=== PATIENT | male | born 1960 | race Caucasian/White ===

== ENCOUNTER 2025-05-27 02:15 | Day surgery (SDC) | payer MEDICARE, SELFPAY ==
[2025-05-17 12:52] VITALS: BMI 27.6
--- OUTSIDE RECORDS SUMMARY | 2025-05-27 02:18 | XMS_ITS | Data Portability ---
Author Organization [facility] Address [address] [place] [address] Care Team Providers Care Bull Fiddle Player Name Role Phone LISA DAS Tufting Creeler Assessment Encounter Date Assessment Date Assessment LastModified by Organization Details LastModified Time 12/13/2023 12/13/2023 Pt's case was discussed w/resident. Documentation was reviewed, and I agree w/resident's note. Dr. Mccullough [email or web address] Not available 12/14/2023 15:04:11 07/21/2024 07/21/2024 Harshad Ly is a 64y/o M with PMH of essential HTN, prediabetes (last A1c from 09/2023 of 6.1%), atherosclerosis, history of VA, OA, celiac disease, and chronic tremor who presents today for follow up appointment. [email or web address] Not available 07/21/2024 12:45:46 11/25/2024 11/25/2024 Needs labs faxed to Dr. Das office Not available 11/25/2024 10:15:47 03/08/2025 03/08/2025 Pt's case was discussed w/resident. Documentation was reviewed, and I agree w/resident's note. Dr. Mccullough [email or web address] Not available 03/11/2025 06:47:10 Plan of Treatment Reminders Order Date Submit Date Provider Last Modified By Organization Details Last Modified Time Details Appointments None recorded. Lab lipid panel, serum 2024 025 [place] [facility], [address], [place], [address], 5 06:51:14 HbA1c (hemoglobin A1c), blood [address] [facility], [address], [place], [address], 5 06:51:16 CBC w/ auto diff [address] [facility], [address], [address], [place], [address], 5 06:51:17 CMP, serum or plasma [address] [facility], [address], [address], [place], [address], 5 06:51:15 Referral neurologist referral 2024 dee Ingram MD, [address] [place] [address], [address], 5 10:13:21 Procedures None recorded. Surgeries None recorded. Imaging None recorded. Medication Orders metoprolol tartrate 25 mg tablet 2024 025 [facility], [address] [place] [address], [address], 5 17:08:18 losartan 100 mg tablet 2024 025 [facility] [address], [address] [place] [address], [address], 5 09:19:52 losartan 100 mg tablet 2024 025 [facility] [address], [address] [place] [address], [address], 5 14:36:26 losartan 50 mg tablet 2023 025 [facility] [address], [address] [place] [address], [address], 09:14:30 atorvastati n 40 mg tablet 2023 024 [email or web address] [facility] [address], [address] [place] [address], [address], 15:02:51 Patient TargetsNo targets recorded. Patient Instructions Encounter Date Encounter Id Patient Instructions Last Modified By Organization Details Last Modified Time 12/13/2023 [id number] A healthy lifestyle: care instructions Not available 12/13/2023 14:24:54 07/21/2024 [id number] A healthy lifestyle: care instructions [email or web address] Not available 07/21/2024 14:36:18 learning about high blood pressure Not available 07/21/2024 14:36:18 I was present in the office and available during the visit. I discussed the patient s presentation, findings, assessment and plan with the resident during or immediately after the time of service. I agree with the resident s findings, assessment, and plan as documented in the note above. Gianluca Vital MD. [facility] [email or web address] Not available 07/21/2024 16:26:02 08/21/2024 [id number] A healthy lifestyle: care instructions [email or web address] Not available 08/21/2024 09:19:41 I was present in the clinic to discuss this patient at the time of the visit. I agree with the documented assessment and plan Lewis Farah MD [email or web address] Not available 08/21/2024 12:59:01 11/25/2024 [id number] A healthy lifestyle: care instructions Not available 11/25/2024 10:08:13 Attending Physician Attestation I did not personally see or examine the patient with the resident. I was physically present to provide indirect supervision through entire encounter. I have reviewed the documentation and agree with the history, physical findings, work-up, and medical decision making as recorded. Argelia Cornejo MD [email or web address] Not available 11/25/2024 10:15:22 03/08/2025 [id number] advance care planning: care instructions [email or web address] Not available 03/08/2025 17:11:20 preventing falls : care instructions [email or web address] Not available 03/08/2025 17:11:20 Quitting Tobacco : Care Instructions [email or web address] Not available 03/08/2025 17:11:20 Medicare Wellnes s Preventive Checklist Not available 03/08/2025 17:11:20 eating healthy foods: care instructions [email or web address] Not available 03/08/2025 17:11:20 AD8 Dementia Screening Interview [email or web address] Not available 03/08/2025 17:11:20 bradycardia: car e instructions Not available 03/08/2025 17:11:20 Reason for Referral Neurologist Referral for Chr onic tremor Referring Physician: Nacho Vyas, [employer]aker [employer]ing Wheel, Encounter Date: 11/25/2024 Results Created Date Observation Date Name Description Value Unit Range Abnormal Flag Note LastModifiedBy Organization Detail LastModifiedTime 11/26/1911/26/2024 LIPID PANEL cholesterol, total 126 mg/dL 100-19 9 Not Available [facility] ([facility]) [address] [place], [address], 11/26/2024 06:51:14 11/26/1911/26/2024 LIPID PANEL triglyceride s 96 mg/dL 0-149 Not Available [facility] ([facility]) [address] [place], [address], 11/26/2024 06:51:14 11/26/1911/26/2024 LIPID PANEL HDL cholesterol 41 mg/dL >39 Not Available [facility] ([facility]) [address] [place], [address], 11/26/2024 06:51:14 11/26/1911/26/2024 LIPID PANEL VLDL cholesterol rita 18 mg/dL 5-40 Not Available [facility] ([facility]) [address] [place], [address], 11/26/2024 06:51:14 11/26/19 25 11/26/2024 LIPID PANEL LDL chol calc ([facility]) 67 mg/dL 0-99 Not Available [facility] ([facility]) [address] [place], [address], 11/26/2024 06:51:14 11/26/19 25 11/26/2024 COMP. METAB OLIC PANEL (14) glucose 96 mg/dL 70-99 Not Available [facility] ([facility]) [address] [place], [address], 11/26/2024 06:51:15 11/26/19 25 11/26/2024 COMP. METAB OLIC PANEL (14) BUN 14 mg/dL 8-27 Not Available [facility] ([facility]) [address] [place], [address], 11/26/2024 06:51:15 11/26/19 25 11/26/2024 COMP. METAB OLIC PANEL (14) creatinine 0.88 mg/dL 0.76-1 .27 Not Available [facility] ([facility]) [address] [place], [address], 11/26/2024 06:51:15 11/26/19 25 11/26/2024 COMP. METAB OLIC PANEL (14) eGFR 95 mL/mi n/1.7 3 >59 Not Available [facility] ([facility]) [address] [place], [address], 11/26/2024 06:51:15 11/26/19 25 11/26/2024 COMP. METAB OLIC PANEL (14) BUN/creatini ne ratio 16 10-24 Not Available [facility] ([facility]) [address] [place], [address], 11/26/2024 06:51:15 11/26/19 25 11/26/2024 COMP. METAB OLIC PANEL (14) sodium 141 mmol/ L 134-14 4 Not Available [facility] ([facility]) [address] [facility] [place], [address], 11/26/2024 06:51:15 11/26/19 25 11/26/2024 COMP. METAB OLIC PANEL (14) potassium 4.8 mmol/ L 3.5-5. 2 Not Available [facility] ([facility]) [address] [facility] [place] [address], 11/26/2024 06:51:15 11/26/19 25 11/26/2024 COMP. METAB OLIC PANEL (14) chloride 106 mmol/ L 96-106 Not Available [facility] ([facility]) [address] [facility] [place], [address], 11/26/2024 06:51:15 11/26/19 25 11/26/2024 COMP. METAB OLIC PANEL (14) carbon dioxide, total 22 mmol/ L 20-29 Not Available [facility] ([facility]) [address] [facility] [place], [address], 11/26/2024 06:51:15 11/26/19 25 11/26/2024 COMP. METAB OLIC PANEL (14) calcium 9.1 mg/dL 8.6-10 .2 Not Available [facility] ([facility]) [address] [facility] [place], [address], 11/26/2024 06:51:15 11/26/19 25 11/26/2024 COMP. METAB OLIC PANEL (14) protein, total 6.4 g/dL 6.0-8. 5 Not Available [facility] ([facility]) [address] [facility] [place], [address], 11/26/2024 06:51:15 11/26/19 25 11/26/2024 COMP. METAB OLIC PANEL (14) albumin 4.1 g/dL 3.9-4. 9 Not Available [facility] ([facility]) [address] [place], [address], 11/26/2024 06:51:15 11/26/1911/26/2024 COMP. METAB OLIC PANEL (14) globulin, total 2.3 g/dL 1.5-4. 5 Not Available [facility] ([facility]) [address] [place], [address], 11/26/2024 06:51:15 11/26/19 25 11/26/2024 COMP. METAB OLIC PANEL (14) bilirubin, total 0.5 mg/dL 0.0-1. 2 Not Available [facility] ([facility]) [address] [place], [address], 11/26/2024 06:51:15 11/26/19 25 11/26/2024 COMP. METAB OLIC PANEL (14) alkaline phosphatase 70 IU/L 44-121 Not Available [facility] ([facility]) [address] [place], [address], 11/26/2024 06:51:15 11/26/1911/26/2024 COMP. METAB OLIC PANEL (14) AST (SGOT) 24 IU/L 0-40 Not Available [facility] ([facility]) [address] [place], [address], 11/26/2024 06:51:15 11/26/19 25 11/26/2024 COMP. METAB OLIC PANEL (14) ALT (SGPT) 25 IU/L 0-44 Not Available [facility] ([facility]) [address] [place], [address], 11/26/2024 06:51:15 11/26/1911/25/2024 HEMOG LOBIN A1C hemoglobin A1C 6.0 % 4.8-5. 6 above high normal Predi abete s: 5.7 - 6.4 Diabe jennifer: >6.4 Glyce dayton contr ol for adult s with diabe jennifer: <7.0 Not Available [facility] ([facility]) [address] [place], [address], 11/26/2024 06:51:16 11/26/1911/25/2024 CBC WITH DIFFE RENTI AL/PL ATELE T WBC 5.2 x10e3 /uL 3.4-10 .8 Not Available [facility] ([facility]) [address] [place], [address], 11/26/2024 06:51:17 11/26/1911/25/2024 CBC WITH DIFFE RENTI AL/PL ATELE T RBC 4.74 x10e6 /uL 4.14-5 .80 Not Available [facility] ([facility]) [address] [place], [address], 11/26/2024 06:51:17 11/26/1911/25/2024 CBC WITH DIFFE RENTI AL/PL ATELE T hemoglobin 14.5 g/dL 13.0-1 7.7 Not Available [facility] ([facility]) [address] [place], [address], 11/26/2024 06:51:17 11/26/1911/25/2024 CBC WITH DIFFE RENTI AL/PL ATELE T hematocrit 44.7 % 37.5-5 1.0 Not Available [facility] ([facility]) [address] [place], [address], 11/26/2024 06:51:17 11/26/1911/25/2024 CBC WITH DIFFE RENTI AL/PL ATELE T MCV 94 fL 79-97 Not Available [facility] ([facility]) [address] [place], [address], 11/26/2024 06:51:17 11/26/1911/25/2024 CBC WITH DIFFE RENTI AL/PL ATELE T MCH 30.6 pg 26.6-3 3.0 Not Available [facility] ([facility]) [address] [facility] [place], [address], 11/26/2024 06:51:17 11/26/1911/25/2024 CBC WITH DIFFE RENTI AL/PL ATELE T MCHC 32.4 g/dL 31.5-3 5.7 Not Available [facility] ([facility]) [address] [facility] [place], [address], 11/26/2024 06:51:17 11/26/1911/25/2024 CBC WITH DIFFE RENTI AL/PL ATELE T RDW 12.7 % 11.6-1 5.4 Not Available [facility] ([facility]) [address] [facility] [place], [address], 11/26/2024 06:51:17 11/26/1911/25/2024 CBC WITH DIFFE RENTI AL/PL ATELE T platelets 199 x10e3 /uL 150-45 0 Not Available [facility] ([facility]) [address] [facility] [place], [address], 11/26/2024 06:51:17 11/26/1911/25/2024 CBC WITH DIFFE RENTI AL/PL ATELE T neutrophils 47 % notest ab. Not Available [facility] ([facility]) [address] [facility] [place], [address], 11/26/2024 06:51:17 11/26/1911/25/2024 CBC WITH DIFFE RENTI AL/PL ATELE T lymphs 37 % notest ab. Not Available [facility] ([facility]) [address] [place], [address], 11/26/2024 06:51:17 11/26/19 25 11/25/2024 CBC WITH DIFFE RENTI AL/PL ATELE T monocytes 12 % notest ab. Not Available [facility] ([facility]) [address] [facility] [place], [address], 11/26/2024 06:51:17 11/26/1911/25/2024 CBC WITH DIFFE RENTI AL/PL ATELE T eos 3 % notest ab. Not Available [facility] ([facility]) [address] [facility] [place], [address], 11/26/2024 06:51:17 11/26/1911/25/2024 CBC WITH DIFFE RENTI AL/PL ATELE T basos 1 % notest ab. Not Available [facility] ([facility]) [address] [facility] [place], [address], 11/26/2024 06:51:17 11/26/1911/25/2024 CBC WITH DIFFE RENTI AL/PL ATELE T neutrophils (absolute) 2.5 x10e3 /uL 1.4-7. 0 Not Available [facility] ([facility]) [address] [facility] [place], [address], 11/26/2024 06:51:17 11/26/1911/25/2024 CBC WITH DIFFE RENTI AL/PL ATELE T lymphs (absolute) 1.9 x10e3 /uL 0.7-3. 1 Not Available [facility] ([facility]) [address] [place], [address], 11/26/2024 06:51:17 11/26/1911/25/2024 CBC WITH DIFFE RENTI AL/PL ATELE T monocytes(ab solute) 0.6 x10e3 /uL 0.1-0. 9 Not Available [facility] ([facility]) [address] [place], [address], 11/26/2024 06:51:17 11/26/19 25 11/25/2024 CBC WITH DIFFE RENTI AL/PL ATELE T eos (absolute) 0.1 x10e3 /uL 0.0-0. 4 Not Available [facility] ([facility]) [address] [facility] [place], [address], 11/26/2024 06:51:17 11/26/1911/25/2024 CBC WITH DIFFE RENTI AL/PL ATELE T baso (absolute) 0.0 x10e3 /uL 0.0-0. 2 Not Available [facility] ([facility]) [address] [facility] [place], [address], 11/26/2024 06:51:17 11/26/19 25 11/25/2024 CBC WITH DIFFE RENTI AL/PL ATELE T immature granulocytes 0 % notest ab. Not Available [facility] ([facility]) [address] [facility] [place], [address], 11/26/2024 06:51:17 11/26/1911/25/2024 CBC WITH DIFFE RENTI AL/PL ATELE T immature grans (abs) 0.0 x10e3 /uL 0.0-0. 1 Not Available [facility] ([facility]) [address] [facility] [place], [address], 11/26/2024 06:51:17 Result Notes None recorded. Problems Name Problem SNOMED Code Status Onset Date Resolution Date Notes Provider Name and Address Organization Details Recorded Time Myocardial infarction 47816922 Completed 200907/20/2022 NACHO VYAS DO Attn: Accounting ,[address] [place], [address] , [facility] 3 10:37:14 Hyperchole sterolemia 70504650 Active 2022 NACHO VYAS DO Attn: Accounting ,[address] [place], [address] , [facility] 3 10:36:16 Celiac disease 786829172 Active 2022 NACHO VYAS DO Attn: Accounting ,[address] [place], [address] , [place] [facility] 3 10:36:24 Coronary atheroscle rosis 306734238 Active 2022 NACHO VYAS DO Attn: Accounting ,[address] [facility], [place], [address] , [place] - [facility] 3 10:36:39 Prediabete s 679926600 Active 2022 NACHO VYAS DO Attn: Accounting ,[address] [facility], [place], [address] , [place] - [facility] 3 12:02:51 Osteoarthr itis 331932526 Active 2022 NACHO VYAS DO Attn: Accounting ,[address] [place], [address] , [place] - [facility] 3 09:20:16 Chronic tremor 516566036 Active 2022 NACHO VYAS DO Attn: Accounting ,[address] [place], [address] , [place] - [facility] 3 11:15:20 History of myocardial infarction 825310400 Active 2022 NACHO VYAS DO Attn: Accounting ,[address] [place], [address] , [place] - [facility] 3 11:15:53 Bradycardi a 13542055 Active 2023 Ira Do MD Attn: Accounting ,[address] [place], [address] , [place] - [facility] 5 17:23:16 Essential hypertensi on 69572634 Active 2024 TRUDY PARIS MD Attn: Accounting ,[address] [place], [address] , [place] - [facility] 5 14:25:49 Problem Notes None recorded. Procedures Surgical History Date Name Laterality Status Provider Name and Address Organization Details Recorded Time 11/13/19 22 repair of meniscus completed NACHO VYAS DO Attn: Accounting, [address], [place], [address], [place] [facility] 07/20/2022 12:02:14 Cholecystectomy completed Donita Dupree [place] - [facility] 07/20/2022 10:24:05 surgical manipulation of wrist joint completed Donita Dupree [place] - [facility] 07/20/2022 10:24:19 Heart Surgery completed Donita Dupree MA [facility] 07/20/2022 10:24:59 Other completed GERARDO Tovar [place] - [facility] 11/25/2024 09:58:42 vasectomy completed Donita Dupree MA [place] - [facility] 03/08/2025 16:15:01 Imaging Results None recorded. Procedure Notes None recorded. Medical Equipment None Reported. Allergies No known drug allergies Medications Name Sig Start Date Stop Date Status Note LastModified by Organization Details LastModified Time losartan 50 mg tablet Take 1 tablet every day by oral route for 90 days, for high blood pressure . 08/21 completed Not Available Not Available Not Available amoxicilli n 500 mg capsule TAKE 1 CAPSULE BY MOUTH 4 TIMES DAILY UNTIL ALL TAKEN 08/21 completed Not Available Not Available Not Available atorvastat in 40 mg tablet TAKE 1 TABLET BY MOUTH ONCE DAILY FOR HIGH CHOLESTE ROL 2024 active Not Available Not Available Not Avai lable hydrocodon e 5 mg-acetami nophen 325 mg tablet TAKE 1 TABLET BY MOUTH EVERY 4 TO 6 HOURS NEEDED FOR PAIN 07/20 completed Not Available Not Available Not Available acetaminop hen 300 mg-codeine 30 mg tablet TAKE 1 TABLET BY MOUTH 4 TIMES DAILY NEEDED 11/25 completed pt is not taking 11/25/24 Not Available Not Available Not Available propranolo l 10 mg tablet TAKE 1 TABLET BY MOUTH THREE TIMES DAILY active Not Available Not Available No t Available erythromyc in 5 mg/gram (0.5 %) eye ointment APPLY TO RIGHT EYE 6 (SIX) TIMES A DAY FOR 10 DAYS 01/21 completed Not Available Not Available Not Available lisinopril 10 mg tablet Take 1 tablet every day by oral route for 30 days. 03/02/ 2024 03/08 /2024 completed Not Available Not Available Not Available aspirin 81 mg chewable tablet Chew 1 tablet every day by oral route. active OTC 11/25/24 Not Available Not Available Not Available losartan 100 mg tablet TAKE 1 TABLET BY MOUTH ONCE DAILY active Not Available Not Available No t Available naproxen 500 mg tablet TAKE 1 TABLET BY MOUTH TWICE DAILY FOR 14 DAYS completed Not Available Not Available Not Available metoprolol tartrate 25 mg tablet TAKE 1/2 (ONE-MAIKEL F) TABLET BY MOUTH TWICE DAILY 03/08 completed Not Available Not Available Not Available Vitals Date Recorded Body height Body mass index (BMI) Body weight Body temperature Heart rate Respiratory rate Oxygen saturation Oxygen saturation in Arterial blood by Pulse oximetry Systolic And Diastolic Systolic And Diastolic Provider Name and Address Organization Details Last Updated DateTime 5 181.61 cm 28.9 kg/m2 03344.4 g 98.2 [degF] 67 /min 16 /min 98 % 98 % 152/83 mm[Hg] 152/84 mm[Hg] Mali Gordillo MA [facility] 5 14:34:20 Date Recorded Body height Body mass index (BMI) Body weight Body temperature Heart rate Respiratory rate Systolic And Diastolic Provider Name and Address Organization Details Last Updated DateTime 5 181.61 cm 28.5 kg/m2 10977.6 2 g 98.3 [degF] 84 /min 18 /min 130/83 mm[Hg] Anabel Corrales MA [facility] 5 09:07:01 Date Recorded Body height Body mass index (BMI) Body weight Respiratory rate Body temperature Oxygen saturation Oxygen saturation in Arterial blood by Pulse oximetry Heart rate Systolic And Diastolic Provider Name and Address Organization Details Last Updated DateTime 5 181.61 cm 27.8 kg/m2 60755.1 7 g 20 /min 98.2 [degF] 96 % 96 % 65 /min 120/74 mm[Hg] GERARDO Tovar [facility] 5 10:00:36 Date Recorded Body height Body mass index (BMI) Body weight Body temperature Heart rate Respiratory rate Oxygen saturation Oxygen saturation in Arterial blood by Pulse oximetry Systolic And Diastolic Provider Name and Address Organization Details Last Updated DateTime 4 181.61 cm 28.5 kg/m2 29251.4 2 g 99.2 [degF] 68 /min 18 /min 96 % 96 % 136/78 mm[Hg] Shirin SuhailGERARDO [place] - [facility] 4 14:10:11 Date Recorded Body height Body mass index (BMI) Body weight Heart rate Oxygen saturation Oxygen saturation in Arterial blood by Pulse oximetry Respiratory rate Body temperature Systolic And Diastolic Provider Name and Address Organization Details Last Updated DateTime 5 181.61 cm 27.9 kg/m2 18412.8 1 g 54 /min 98 % 98 % 16 /min 96.9 [degF] 110/66 mm[Hg] Donita Dupree MA [place] - [facility] 5 16:23:49 Social History Question Answer Notes LastModified by Organizat ion Details LastModified Time Tobacco Smoking Status Former Smoker Donita Dupree MA [facility], [place] - [facility] 07/20/2022 10:21:48 Do You Have An Advance Directive? No Information not available 07/20/2022 How Many Years Have You Consumed Alcohol? 47 Started At Age 15 Information not available 07/20/2022 In The 14 Days Before Symptom Onset, Have You Had Close Contact With A Laboratory-confir med COVID-19 While That Case Was Ill? No Information not available 07/20/2022 In The 14 Days Before Symptom Onset, Have You Had Close Contact With A Person Who Is Under Investigation For COVID-19 While That Person Was Ill? No Information not available 07/20/2022 Have You Been To An Area Known To Be High Risk For COVID-19? No Information not available 07/20/2022 What Was The Date Of Your Most Recent Tobacco Screening? 11/25/2024 Information not available 11/25/2024 What Is Your Current Pack Years? 10packyear s Information not available 07/20/2022 What Is Your Relationship Status? Information not available 07/20/2022 Are You Sexually Active? Yes No Protection Used Information not available 07/20/2022 Do You Have Smoke And Carbon Monoxide Detectors In Your Home? Yes Information not available 07/20/2022 At What Age Did You Start Smoking Tobacco? 15 Information not available 07/20/2022 Are You Passively Exposed To Smoke? Yes Smokes Information no t available 07/20/2022 How Much Tobacco Do You Smoke? No Information not available 03/08/2025 Has Tobacco Cessation Counseling Been Provided? Yes Information not available 11/25/2024 On What Date Was Tobacco Cessation Counseling Provided? 11/25/2024 Information not available 11/25/2024 How Many Years Have You Smoked Tobacco? .5 Only Smoked For 6 Months Information not available 07/20/2022 Sex: Male Functional Status Question Answer Note LastModified by Organizat ion Details LastModified Time Do you use any illicit or recreational drugs? No Information not available 07/20/2022 Do you or have you ever used any other forms of tobacco or nicotine? No Information not available 07/20/2022 What is your level of alcohol consumption? Occasional Information not available 07/20/2022 Are you currently employed? No Retired Information not available 07/20/2022 Mental Status None recorded. Family History Relationship Description Onset Age of this Age Resolved Age Notes LastModified by Organization Details LastModified Time Son Attention deficit hyperactivit y disorder [email or web address] Not available 12/2022 10:19:11 Son Diabetes mellitus [email or web address] Not available 07/20 10:19:53 Mother Cerebrovascu lar accident [email or web address] Not available 10:19:23 Mother Hypertensive disorder [email or web address] Not available 07/20 10:20:21 Mother 85 [email or web address] Not available 03/08/2025 16:15:36 Father Coronary arterioscler osis [email or web address] Not available 07/20 10:19:38 Father Heart disease [email or web address] Not available 07/20 10:20:06 Father Myocardial infarction [email or web address] Not available 12/2022 10:20:35 Father 78 [email or web address] Not available 03/08/2025 16:15:36 Daughter Migraine [email or web address] Not avail able 07/20/2022 10:20:44 Notes:no family hx of cancer 07/20/22, 01/21/23, 11/25/24, 03/08/25 Medical History Condition Response Coronary Artery Disease Y Other N Atrial Fibrillation N High Blood Pressure Y Kidney or Bladder Problems N Thyroid Problems N GI Problems N Depression N COPD N Blood Clots N Skin Problems N Anemia N Heart Attack ([place]) Y Anxiety Disorder N Diabetes N Muscle, Joint, or Bone Problems N Seizures/Epilepsy N Acid Reflux (GERD) N Cancer N Stroke N Asthma N Allergies N High Cholesterol Y Hepatitis N Liver Disease N Headaches N Heart Failure N Osteoporosis N Immunizations Vaccine Type Date Status Note Provider Nam e and Address Organization Details Recorded Time COVID-19, mRNA, LNP-S, PF, 100 mcg/0.5mL dose or 50 mcg/0.25mL dose 1 completed NACHO VYAS DO Attn: Accounting,[address] [place], [address], [place] [facility] 07/20/2022 10:43:49 COVID-19, mRNA, LNP-S, PF, 100 mcg/0.5mL dose or 50 mcg/0.25mL dose 1 completed NACHO VYAS DO Attn: Accounting,[address] [place], [address], [place] [facility] 07/20/2022 10:43:49 Pneumococcal conjugate PCV20, polysaccharide [id number] conjugate, adjuvant, PF 3 completed Missy Perez MD Attn: Accounting,[address] [place], [address], [place] [facility] 07/31/2022 17:13:53 Influenza, split virus, quadrivalent, PF 3 completed Missy Perez MD Attn: Accounting,[address] [place], [address], [place] [facility] 07/31/2022 17:13:53 Tdap 3 completed Missy Perez MD Attn: Accounting,[address], [place], [address], [place] [facility] 07/31/2022 17:13:53 Past Encounters Encounter ID Performer Location Encounter Start Date Encounter Closed Date Diagnosis/Indication Diagnosis SNOMED-CT Code Diagnosis ICD10 Code Diagnosis IMO Codes Diagnosis Note [id number] MD Sudheer Forrest [address] [facility] [place] [address] 07/20/2022 10:02:35 07/26/2022 15:49:49 Overweight 085228230 E66.3 Healthy lifestyle encouraged including regular exercise of at least 150min per week, diet rich in plant based foods and low in added sugars, processed carbohydra jennifer, and high salt foods. Encouraged protein intake mostly with chicken and white fish and limited red meat. Hypercholesterolemia 136 33900 E78.00 Lipid panel 04/26/2022 Total Cholestero l 132LDL was 80TG were 43HDL was 43Will continue current regimen Hypertensive disorder 38 519741 I10 BP today was 138/72Well controlled Will continue current regimen Prediabetes 651956112 R7 3.03 HbA1c was 6.0.Lifest yle modificati ons were discussedW ill recheck in 6 months Administra tion of pneumococcal vaccine 32347316 Z23 Administra tion of influenza vaccine 83706225 Z23 Administra tion of diphtheria, pertussis, and tetanus vaccine 615888110 Z23 [id number] MD Sudheer Stein [address] [facility] [address] [place] [address], [place] [address] 01/21/2023 16:16:05 01/22/2023 15:54:06 Hypertensive disorder 70776897 I10 BP today elevated. Did drink cup of coffee just prior to arrivalMed s include Metoprolol 25 mg bidWill keep blood pressure log and follow up in 1 monthConsi shabbir added lisinopril if still elevated at next visit Prediabetes 137656415 R7 3.03 HbA1c was 6.0 in JulWill recheck HIV screening 346122185 Z11.4 Overweight 167308622 E66 .3 Has lost 16 lbs in last 6 months Healthy lifestyle encouraged including regular exercise of at least 150min per week, diet rich in plant based foods and low in added sugars, processed carbohydra jennifer, and high salt foods. Encouraged protein intake mostly with chicken and white fish and limited red meat. Pain of left heel 021864 8262 432653 M79.672 Could be sprain or strain but given this has been going on for 4 months and there was trauma, I do have suspicion for fracture.W ill obtain left foot xray and start naproxen for 14 daysRecomm ended conservati ve treatment at this time until xray has resultedIf xray positive for fracture will send ortho referralFo llow up in 1 month [id number] MD Sudheer Mena [address] [facility] [place] [address] 02/26/2023 10:48:17 02/27/2023 14:21:39 Hypertensive disorder 61197757 I10 BP still slightly elevated initially but on recheck it was 138/64, I suspect a level of white coat hypertensi onBP log shows only 2 BPs > 140, otherwise all normalMeds include Metoprolol 25 mg bidSeeing his cardiologi st in 1 monthNo further medication changes at this time.Will follow up in 6 months Chronic tremor 417411337 R25.1 Has had tremor for over 15 years, Extensive family hx of it (father, brother, uncle and aunt)Seen neurologis t 10 years ago and started on a medication but does not know what. Had very bad allergic reaction (blisters) Will send new referral Bradycardia 23385317 R00 .1 Asymptomat ic, Mild ellen, could be due to patient losing weight and now needs less metoprolol Consider decreasing metoprolol with cardiologi st Arthritis of left foot [id number] 071277 M13.872 Pain has improvedGi roseanne home exercise program [id number] MD Sudheer Forrest 14 IM [address] [facility] [place] [address] 09/12/2023 16:15:01 09/17/2023 10:22:10 Coronary atherosclerosis 628071077 I25.10 patient will continue on aspirin and atorvastat in 40 mg daily Hypertensive disorder 38 770704 I10 Meds include Metoprolol 25 mg bidblood pressure still highwe will start lisinopril 10 mg dailyNo further medication changes at this time.Will follow up in 2-3 months, will bring blood pressure log at that time Prediabetes 959014538 R7 3.03 HbA1c was 6.0 in JulWill recheck Hypercholesterolemia 136 34494 E78.00 Lipid panel 04/26/2022 Total Cholestero l 132LDL was 80TG were 43HDL was 43we will check lipid panel History of myocardial infarction 159817013 I25.2 patient will continue on aspirin atorvastat in 40 mg daily Overweight 525454048 E66 .3 Has lost 16 lbs in last 6 months Healthy lifestyle encouraged including regular exercise of at least 150min per week, diet rich in plant based foods and low in added sugars, processed carbohydra jennifer, and high salt foods. Encouraged protein intake mostly with chicken and white fish and limited red meat. Bradycardia 68728678 R00 .1 Asymptomat ic, Mild ellen, could be due to patient losing weight and now needs less metoprolol cardiologi st did not decrease the metoprolol back in l reach out to cardiologi st to discuss this. patient case made.Rebecca lechuga gave patient good return precaution s [id number] MD Sudheer Stein 14 IM [address] [facility] [place] [address] 12/13/2023 13:49:55 12/16/2023 11:21:19 Hypertensive disorder 26130163 I10 Losartan 50 mg dailyMetop rolol 12.5 mg qhl927z/80 s at homeNo further bradycardi aContinue current treatment Hypercholesterolemia 136 47557 E78.00 09/23/2023L DL at goal of 71Continue atorvastat in Prediabetes 157636167 R7 3.03 EeL8sTyn 2022 6.0March 2023 6.1 Lifestyle modificati on - recheck in 6 months Overweight 501193253 E66 .3 Healthy lifestyle encouraged including regular exercise of at least 150min per week, diet rich in plant based foods and low in added sugars, processed carbohydra jennifer, and high salt foods. Encouraged protein intake mostly with chicken and white fish and limited red meat. [id number] MD Sudheer Mena 14 IM [address] [facility] [place] [address] 07/21/2024 14:03:15 07/22/2024 11:31:51 Overweight 908226463 E66.3 -Chronic-B VA 28.9, stable from previous visit-Stat es he has been consuming more fruit and vegetables and is thinking about getting a gym membership Recommenda tions:-Cho ose minimally processed foods-Incr ease consumptio n of whole grains, vegetables , fruits, nuts, fish-Discu ssed portion sizes, recommende d the [employer] resource: https://ww w.heart.or g/en/healt hy-living/ healthy-ea ting/eat-s mart/nutri tion-basic s/suggeste d-servings -from-each -food-grou p -Limit sugar-swee tened beverages and fruit juice and consume more water-Pepe mmend 150 minutes of moderate intensity exercise a week. Can be divided up to fit patient's work/life schedule (discussed walking in [place], choosing a gym, or even walking in the [place]!) Essential hypertension 89872074 I10 -Chronic-1 , repeat-On Losartan 50mg and Metoprolol 12.5mg, will increase Losartan to 100mg qday [id number] MD Sudheer Luna [address] [facility] [place] [address] 08/21/2024 08:56:38 09/08/2024 13:16:16 Essential hypertension 39073181 I10 Chronic, stable -C/W losartan 100 mg daily -C/W with BP log Overweight 898083557 E66 .3 Healthy lifestyle encouraged including regular exercise of at least 150min per week, diet rich in plant based foods and low in added sugars, processed carbohydra jennifer, and high salt foods. Encouraged protein intake mostly with chicken and white fish and limited red meat. [id number] MD Sudheer BERRY 14 IM [address] [facility] [place] [address] 11/25/2024 09:17:06 12/29/2024 13:10:06 Essential hypertension 03442309 I10 Losartan 100 mg dailyMetop rolol 12.5 mg wzu988z/80 s at homeNo further bradycardi aContinue current treatmento btain CBC, CMP, lipid panel and HbA1c Overweight 244550690 E66 .3 Healthy lifestyle encouraged including regular exercise of at least 150min per week, diet rich in plant based foods and low in added sugars, processed carbohydra jennifer, and high salt foods. Encouraged protein intake mostly with chicken and white fish and limited red meat. Coronary atherosclerosis 646600987 I25.10 patient will continue on aspirin and atorvastat in 40 mg dailyObtai n HbA1c and lipid panel today History of myocardial infarction 892762446 I25.2 patient will continue on aspirin and atorvastat in 40 mg daily Chronic tremor 563542100 R25.1 Has had tremor for over 15 years, Extensive family hx of it (father, brother, uncle and aunt)Seen neurologis t 10 years ago and started on a medication but does not know what. Had very bad allergic reaction (blisters) Will send new neuro referral [id number] Harshad Mccullough MD Wilton 14 IM [address] [facility] [address] [place] [address] 03/08/2025 15:55:05 04/21/2025 11:55:33 Adult health examination 000888148 Z00.00 - Health Risk Assessment collected and reviewed- Discussed about firearm safety- patient has firearms at home- Discussed about handle bars in shower- Discussed about POA paperwork, patient said he will work on it- Discussed about colon cancer screening however patient does not want it at this time- f/u in 1 year Bradycardia 41010458 R00 .1 40352 - HR 54 today- Patient taking Metoprolol and Propranolo l- Takes Propranolo l for tremor, metoprolol for HTN and h/o VA- Recommende d stopping Propranolo l and increasing Metoprolol dose instead to help with tremor and improve HR, however, patient wants to stop taking Metoprolol and continue Propranolo l instead, he states he will speak to his cardiologi st about this further- f/u in 1 month History of endocrine disorder 765570998 Z87.898 [id number] - Last HbA1C 6 on 11/25/2024 Health Concerns Section Related Observation LastModified by Organization Detai ls LastModified Time None Recorded Concern Status LastModified by Organization Details LastModified Time None Recorded Advance Directives Directive N: Payers Insurance Date Sequence Insurance Name Policy Number Policy Encarnacion Covered Member ID Encarnacion Member ID Guarantor Name 04/21/[address] [facility] (MEDICARE REPLACEMENT/A DVANTAGE - HMO) [id number] Harshad Ly [id number] Harshad Ly 07/16/2024 1 [place] [id number] Gloria Ly [id number] Harshad Ly 03/05/2025 [place] Harshad Ly [id number] Harshad Ly 03/05/2025 2 [place] Harshad Ly [id number] Harshad Ly 09/12/2023 1 [place] [id number] Gloria Ly [id number] Harshad Ly Notes Date Note Type Note Provider Name and Address Organization Details Recorded Time 12/13/2023 text/html 63 yo M presents for BP follow up. Pt was logging the BP at home, but did not bring log. Pt states pressure have been running 130s/70s. Harshad Mccullough MD Attn: Accounting,[address] [place], [address], [facility] - [facility] 12/14/2023 15:04:27 07/21/2024 text/html HPI:Harshad Ly is a 64y/o M with PMH of essential HTN, prediabetes (last A1c from 09/2023 of 6.1%), atherosclerosis, history of VA, OA, celiac disease, and chronic tremor who presents today for follow up appointment. Today's concerns:-States average reading at home is 135/77 at home. Checks his BP once a few weeks. Denies any symptoms such as headaches, vision changes (blurry, double vision), CP, palpitations, or nausea. SH:-Denies any tobacco use, including vaping-Occasional alcohol use, couple drinks once a drink-No other ilicit drug use Preventive Health Measures:-BP screenin/83, repeat 152/84-Dental exam: Appointment for next week-Eye exam: Reminded to make an appointment-Diabetic foot exam: N/A-Diabetic eye exam: N/A-HIV screen: Screened in 2022, azy-ysiifukw-Ugp C screen:-Tdap vaccine: , 2022-COVID/Flu vaccine: Last COVID vaccine in 2020-Pneumococcal vaccine:In need of, out of in office, recommended to get at local pharmacy-Shingles vaccine:Has not had, reminded to make appointment at local pharmacy-Colonoscopy : UTD, 2022 with recommendation for repeat in 10 years-LDCT: N/A-PHQ-9, MARIA DEL ROSARIO-7: Both scores of 0 as of 07/21/24 Stacie Vital MD Attn: Lazara,[address] [facility], [place], [address], [facility] - [facility] 07/21/2024 16:26:12 08/21/2024 text/html HPI:Harshad Ly is a 64y/o M with PMH of essential HTN, prediabetes (last A1c from 09/2023 of 6.1%), atherosclerosis, history of VA, OA, celiac disease, and chronic tremor who presents today for HTN follow up appointment. HTN -BP 130/83. Patient report average reading at home is 135/77 at home. Checks his BP once a few weeks. Denies any symptoms such as headaches, vision changes (blurry, double vision), CP, palpitations, or nausea. Lewis Farah MD Attn: Accounting,[address] [facility], [place], [address], [facility] - [facility] 09/07/2024 18:22:28 11/25/2024 text/html ROS as noted in the HPI 64-year-old male with a past medical history of hypertension, hyperlipidemia, VA, CAD., Celiac disease, chronic tremor presents to clinic for follow-up. He reports compliance with medications. Blood pressure at home running 120s to 130s systolic. Started taking the losartan at night because it was making him drowsy throughout the day but when he started taking it at night symptoms resolved. He has no other concerns. ARGELIA CORNEJO MD Attn: Accounting,[address] [facility], [place], [address], [facility] 12/28/2024 12:38:49 03/08/2025 text/html MAW 2Reported by PatientSocial/Behavi oral HistoryFor fracture risk, patient reportshistory of fracturesbut reportsno sudden unexplained fractures(broke his toe when he was 36 years old). For diet and nutrition, patient reportshealthy diet.Mental Status:For concentration and memory, patient reportsno decreased concentrating ability,no memory lapses or loss, anddoes not forget words. For speech/motor difficulties, patient reportsno speech difficulties,no difficulty expressing formulated concepts,no difficulty with fine manipulative tasks,no difficulty writing/copying,no slowed reaction time, anddoes not knock things over when trying to pick them up.Functional AbilityFor home safety, patient reportsfire armsanddoes not have hand bars in the bathroom/showerbut reportsno unsafe milady hazzards,no unsafe stairs,working smoke/co detectors,practicing 'safer sex', andgood lighting in the home(has firearms which are locked away). For hearing, patient reportswears hearing aids. For vision, patient reportsno vision problems. For activities of daily living, patient reportsable to bathe with limited or no assistance,able to contol urination and bowels,able to dress with limited or no assistance,able to feed self with limited or no assistance,able to get out of chair or bed with limited or no assistance,able to groom with limited or no assistance, andable to toilet with limited or no assistance. For instrumental activities of daily living, patient reportsable to do house work with limited or no assistance,able to grocery shop with limited or no assistance,able to manage medications with limited or no assistance,able to manage money with limited or no assistance,able to prepare meals with limited or no assistance, andable to use the phone with limited or no assistance. For falls risk assessment, patient reportsno frequent falls while walking,no fall in the past year,no fall since last visit, andno dizziness/vertigo. 64 y/o M with PMH of HTN, CAD, Hypercholesterolemia , Pre-diabetes, Celiac disease, OA, and chronic Tremor (in hands and neck) presents to the clinic for medicare annual wellness visit.Doing well.No other concerns. PMH: See problem listMedications: See medication listAllergies: NKDA Screening:Patient reports he has not had colon cancer screening done for a while but is not interested in getting it done at this time. Options discussed. Social Hx:- Patient reports he is a non-smoker- Patient drinks alcohol about twice a week- Patient denies IDU Harshad Mccullough MD Attn: Accounting,[address] [place] [place], [address], [place] [facility] 03/11/2025 06:47:24
--- OUTSIDE RECORDS SUMMARY | 2025-05-27 02:18 | XMS_ITS | Clinical Summary ---
Author Organization [facility] Address [address] [place] [address] Care Team Providers Care Drum Printer Name Role Phone Marco Gaines DO Primary Care Provider [phone] Source Comments [facility],non-owned Affiliates and Associated Physician Practices is amultiple site organization consisting of ambulatory clinics and hospital sitesin [place], [place], [place] and [place]. This disclosure is being madepursuant to the Care Everywhere program and may not contain all information available regarding this patient. Last updated 18.[facility] Encounters Date Type Department Care Team Description 05/07/2025 Patient Outreach [facility] - Care Coordination [address] [place] [address] Bernie Rodríguez, RADHA Outreach Preventive Care from Last 3 Months Social History Tobacco Use Types Packs/Day Years Used Date Smoking Tobacco: Never Assessed Sex and Gender Information Value Date Recorded Sex Assigned at Not on file Legal Sex Male 1:06 PM CDT Gender Identity Not on file Sexual Orientation Not on file Plan of Treatment Health Maintenance Due Date Last Done Comments COLOGUARD (AGES 45-75) - COL ON CA SCREENING 1959 COLON MONITORING 1959 COLONOSCOPY - COLON CA SCREENING 1959 CT COLONOGRAPHY - COLON CA SCREENING 1959 Colorectal Cancer Screening 1959 FIT - COLON CA SCREENING 1959 FLEX SIG - COLON CA SCREENING 1959 LIPID TESTING 1959 HEPATITIS C SCREENING 03/28/1977 DTAP/TDAP/TD VACCINES (1 - Tdap) 1978 PNEUMOCOCCAL VACCINE 50+ (1 of 1 - PCV) 2009 ZOSTER VACCINE (1 of 2) 2009 DEPRESSION SCREENING 07/15/2024 COVID-19 VACCINE (1 - 2023-2 5 season) 2025 INFLUENZA VACCINE (#1) 2025 04/14/2010 Respiratory Syncytial Virus (RSV) Vaccine Pt: or over 60 yrs (1 - 1-dose 75+ series) 2034 HEPATITIS B VACCINE Aged Out No longe r eligible based on patient's age to complete this topic HIB VACCINE Aged Out No longer eligi ble based on patient's age to complete this topic HPV VACCINE Aged Out No longer eligi ble based on patient's age to complete this topic MENINGOCOCCAL (Group B) VACC INE SHARED DECISION-MAKING Aged Out No longer eligibl e based on patient's age to complete this topic MENINGOCOCCAL GROUPS A/C/Y/W VACCINE Aged Out No longer eligible b ased on patient's age to complete this topic Insurance [employer] Care Teams Drum Printer Relationship Specialty Start Date End Date Marco Gaines DO [address] [place] [address] PCP - General Internal Medicine 05/07/25
--- OUTSIDE RECORDS SUMMARY | 2025-05-27 02:18 | XMS_ITS | Clinical Summary ---
Author Organization [facility] Address [address] [place] [address] Phone Care Team Providers Care Hadoop Consultant Name Role Phone Joel Jacque DO Primary Care Provider [phone] Grupo Ingram MD Unavailable Allergies No known active allergies Medications Aspirin 81 MG Tablet Take 81 mg by mouth daily. Active atorvastatin (LIPITOR) 40 MG Tablet Take 40 mg by mouth daily. Active naproxen (NAPROSYN) 500 MG Tablet Take 500 mg by mouth 2 times daily (with meals). Active losartan (COZAAR) 100 MG Tablet Take 100 mg by mouth daily. Active propranolol (INDERAL) 10 MG TabletIndicatio ns:Essential tremor Take 1 Tablet by mouth 2 times daily. 180 Tablet 3 5 Active propranolol (INDERAL) 10 MG TabletIndicatio ns:Essential tremor Take 1 Tablet by mouth 3 times daily. 90 Tablet 2 5 05/18/20 25 Discontinu ed(Reorder ) Active Problems Problem Noted Date Diagnosed Date Celiac disease 04/06/2016 Anemia, iron deficiency 01/19/2016 Anemia, normocytic normochromic 01/06/2016 B12 deficiency 01/06/2016 High blood pressure 12/22/2015 History of myocardial infarction 12/22/2015 Dyslipidemia 06/29/2015 Resolved Problems Problem Noted Date Diagnosed Date Resolved Date HTN (hypertension) 06/29/2015 06/09/201 6 Encounters Date Type Department Care Team Description 05/18/2025 11:30 AM FORENSIC TECHNICIAN [facility] [place] [address] Grupo Ingram MD Essential tremor Discharge Disposition: Discharged to home or Selfcare 05/18/2025 Travel from Last 3 Months Family History Medical History Relation Name Comments Heart Attack Father Stroke Father Diabetes Maternal Grandfather Hypertension Mother Stroke Mother Relation Name Status Comments Father Maternal Grandfather Mother Alive Social History Tobacco Use Types Packs/Day Years Used Date Smoking Tobacco: Former Cigarettes 0.3 0.9 S tarted: 07/15/2024 Smokeless Tobacco: Never Tobacco Cessation:Counseling Given: Yes Alcohol Use Standard Drinks/Week Comments No 0 (1 standard drink = 0.6 oz pur e alcohol) Sex and Gender Information Value Date Recorded Sex Assigned at Not on file Legal Sex Male 11:39 PM CDT Gender Identity Not on file Sexual Orientation Not on file Last Filed Vital Signs Vital Sign Reading Time Taken Comments Blood Pressure 120/70 05/18/2025 11:24 AM FORENSIC TECHNICIAN Pulse 61 05/18/2025 11:24 AM FORENSIC TECHNICIAN Temperature 36 C (96.8 F) 05/18/2025 11:24 AM FORENSIC TECHNICIAN Respiratory Rate 16 02/11/2025 1:33 PM CDT Oxygen Saturation 99% 05/18/2025 11: 24 AM FORENSIC TECHNICIAN Inhaled Oxygen Concentration - - Weight 92.4 kg (203 lb 12.8 oz) 025 11:24 AM FORENSIC TECHNICIAN Height 181.6 cm (5' 11.5) 05/18/2025 1 1:24 AM FORENSIC TECHNICIAN Body Mass Index 28.03 05/18/2025 11:24 AM FORENSIC TECHNICIAN Plan of Treatment Upcoming Encounters Date Type Department Care Team (Late st Contact Info) Description 05/17/2026 9:00 AM FORENSIC TECHNICIAN Office Visit [facility] [address] [place] [address] Grupo Ingram MD [address] [place] [address] Health Maintenance Due Date Last Done Comments Hepatitis C Virus (HCV) Screening 1960 Cologuard 2004 Immunochemical Fecal Occult Blood 2004 Respiratory Syncytial Virus (RSV) Immunization (Adult) (1 - Risk 50-74 years 1-dose series) 2009 Zoster Immunization (1 of 2) 2009 AAA Screening Ultrasound 2024 Welcome to Medicare (IPPE) G0402 09/12/2024 Influenza Immunization (#1) 2025 07/20/2022 SARS-COV-2 Immunization (3 - season) 2025 04/12/2021, 03/15/2021 Colonoscopy 03/23/2026 03/23/2016 Colorectal Cancer Screening 03/23/2026 PSA Discussion Completed 01/03/2016 Pneumococcal Immunization (5 0+ years) Completed 07/20/2022 Pneumococcal Immunization Combined Discontinued 07/20/2022 TdaP Immunization Completed 07/20/2022 Hepatitis B Immunization Aged Out No longer eligible based on patient's age to complete this topic Human Papillomavirus (HPV) Immunization Aged Out No longer eligible based on patient's age to complete this topic Meningococcal Immunization (ACWY) Aged Out No longer eligible based on patient's age to complete this topic Rotavirus Immunization Aged Out No lo nger eligible based on patient's age to complete this topic Procedures Procedure Name Priority Date/Time Associated Diagnosis Comments COLONOSCOPY Routine 03/23/2016 PSA SCREEN Routine 01/03/2016 Screening for prostate cancer from Last 3 Months or Most Recently Relevant to Health Maintenance Results * COLONOSCOPY (03/23/2016) Ade Mcclure MD PROCEDURE/MINOR SURGICAL OR DERABLES Final Result * PSA SCREEN (01/03/2016) PSA (PROSTATE SPECIFIC ANTIGEN) 0.35 ng/mL Blood specimen (specimen) 01/03/2016 Jeremy Castro MD CHEMISTRY ORDERABLES Edit ed Result - Final from Last 3 Months or Most Recently Relevant to Health Maintenance Insurance MEDICARE C [facility] [place] [id number] Care Teams Hadoop Consultant Relationship Specialty Start Date End Date Jacque Maldonado DO [address] [place] [address] PCP - General Family Medicine 12/30/24 Grupo Ingram MD [address] [place] [address] Consulting Physician Neurology 05/17/25
--- OUTSIDE RECORDS SUMMARY | 2025-05-27 02:18 | XMS_ITS | Encounter Summary ---
Author Organization [facility] Address [address] [place] [address] Phone Care Team Providers Care Housekeeping Director Name Role Phone Jeremy Castro MD Primary Care Provider [phone] Jacque Young DO Primary Care Provider [phone] Marco Gaines DO Primary Care Provider [phone] Encounter Details Date Type Department Care Team (Late st Contact Info) Description 11/03/2021 Documentation [facility] Medicine Orthopaedic Surgery [address] [place] [address] [place] [address] [place] [address] Social History Tobacco Use Types Packs/Day Years Used Date Smoking Tobacco: Never Smokeless Tobacco: Never Alcohol Use Standard Drinks/Week Comments No 0 (1 standard drink = 0.6 oz pur e alcohol) AUDIT-C Answer Date Recorded Q1: How often do you have a drink containing alc ohol? Monthly or less 09/26/2021 Q2: How many drinks containi ng alcohol do you have on a typical day when you are drinking? 1 or 2 09/26/2021 Q3: How often do you have si x or more drinks on one occasion? Never 09/26/2021 Sex and Gender Information Value Date Recorded Sex Assigned at Not on file Legal Sex Male 11:25 AM PIPELINE GANG SUPERVISOR Gender Identity Not on file Sexual Orientation Not on file documented as of this encounter Plan of Treatment Not on file documented as of this encounter Visit Diagnoses Not on filedocumented in this encounter Additional Health Concerns Infection Onset Date Last Indicated Resolved Time COVID: Suspected 01/03/2023 01/03/2023 01/03/2023 10:28 AM CDT documented as of this encounter Care Teams Housekeeping Director Relationship Specialty Start Date End Date Jeremy Castro MD [address] [address] PCP - General 09/28/10 03/19/23 Jacque Young DO [address] [address] PCP - General Family Medicine 03/20/23 04/28/25 Marco Gaines DO [address] [place] [address] PCP - General Internal Medicine 04/29/25 documented as of this encounter
--- OUTSIDE RECORDS SUMMARY | 2025-05-27 02:18 | XMS_ITS | Clinical Summary ---
Author Organization [facility] Address [address] [place] [address] Care Team Providers Care Softball Player Name Role Phone Marco Gaines DO Primary Care Provider [phone] Allergies No known active allergies Medications aspirin 81 mg enteric coated tabletIndicati ons:primary prevention of coronary heart disease Take 1 tablet (81 mg total) by mouth nightly Active multivitamin capsuleIndicat ions:Vitamin Deficiency Prevention Take 1 capsule by mouth daily before breakfast Active [id number] pa-fish oil (Fish OiL) 350-600 mg capsule Take 1 tablet by mouth nightly Active metoprolol tartrate (LOPRESSOR) 25 mg immediate release tablet Take 1 tablet (25 mg total) by mouth 2 (two) times a day 180 tablet 3 2 Active Additional Information Patient taking differently: 12.5 mgoral 2 times daily, Reported on 04/29/2025 atorvastatin (LIPITOR) 40 mg tablet Take 1 tablet by mouth nightly 30 tablet 11 4 Active propranoloL (INDERAL) 10 mg tablet Take 1 tablet (10 mg total) by mouth 3 (three) times a day 5 Active losartan (COZAAR) 100 mg tablet Take 1 tablet (100 mg total) by mouth daily 5 Active losartan (COZAAR) 25 mg tablet Take 1 tablet (25 mg total) by mouth daily 04/29/20 25 Discontin ued(Dose adjustmen t) Active Problems Problem Noted Date Diagnosed Date Complex tear of medial menis cus of left knee as current injury 09/20/2021 Overview (09/20/2021): Added automatically from request for surgery [id number] 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 Celiac disease 04/06/2016 Anemia, iron deficiency 01/19/2016 Anemia, normocytic normochromic 01/06/2016 B12 deficiency 01/06/2016 High blood pressure 12/22/2015 History of myocardial infarction 12/22/2015 Dyslipidemia 06/29/2015 Encounters Date Type Department Care Team Description 04/29/2025 8:00 AM CDT Office Visit [facility] at [address] [place] [address] Celia Das MD Coronary artery disease involving kluti kaah coronary artery of kl[place] ka[place] heart, unspecified whether angina present (Primary Dx) from Last 3 Months Immunizations Immunization Administration Dates Next Due DTP 08/21/2002 Influenza, Split 04/14/2010 Surgical History Surgery Date Site/Laterality Comments CHOLECYSTECTOMY 07/15/2007 - 07/14/2008 Cholecystectomy WRIST SURGERY 07/15/1995 - 07/14/1996 Left CORONARY ANGIOPLASTY WITH STENT PLACEMENT 07/15/2009 - 07/14/2010 heart cath with 1 stint FINGER SURGERY 07/15/1978 - 07/14/1979 plastic surgery right index finger 2/2 laceration Medical History Medical History Date Comments Myocardial infarction (HCC) 2009 s/p coronary stent Hyperlipidemia on statin Attention deficit disorder 2005 ADHD Hx Other Medical 2004 gallbladder rem aishwarya Hx Other Medical 11/2009 Carotid artery disease- pt denies CAD (coronary artery disease) s/ p [place] and coronary stent 2009. Denies CP/SOB. Follows with cardiology yearly. Anemia H/H WNL 04/2019. Iron deficiency. 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 Gender Identity Not on file Sexual Orientation Not on file Last Filed Vital Signs Vital Sign Reading Time Taken Comments Blood Pressure 131/77 04/29/2025 8:29 AM CDT Pulse 60 04/29/2025 8:29 AM CDT Temperature 38.2 C (100.7 F) 01/03/2023 9:33 AM CDT Respiratory Rate 16 04/23/2024 9:06 AM CDT Oxygen Saturation 96% 04/23/2024 9:06 AM CDT Inhaled Oxygen Concentration - - Weight 92.1 kg (203 lb) 04/29/2025 8:29 AM CDT Height 180.3 cm (5' 11) 04/29/2025 8:29 AM CDT Body Mass Index 28.31 04/29/2025 8:29 AM CDT Plan of Treatment Health Maintenance Due Date Last Done Comments Depression Screening 1960 Hepatitis C Screening 1960 Prostate Cancer Screening-PSA 1959 Hepatitis B Screening 1977 Pneumococcal vaccine 65+ (1 of 1 - PCV) 2009 Zoster Vaccine (1 of 2) 2009 Fall Risk Assessment 10/10/2022 10/10/2021 Well Visit 65+ 2024 Covid-19 Vaccine (3 - season) 2025, 03/15/2021 Influenza Vaccine (#1) 2025 07/20/2022, 2009 Colon Cancer Screening-Colonoscopy 03/23/20262015, 03/05/2011 DTaP/Tdap/Td Vaccine (3 - Td or Tdap) 07/20/203212/2022, 08/21/2002 Colon Cancer Screening-CT Colonography Discontinued , 03/05/2011 Colon Cancer Screening-DNA Stool Discontinued 03/23/20 16, 03/05/2011 Colon Cancer Screening-FIT Discontinued 03/23/2016, Colon Cancer Screening-Sigmoidoscopy Discontinued 03/2016, 03/05/2011 Procedures Procedure Name Priority Date/Time Associated Diagnosis Comments ECG 12-LEAD Routine 04/29/2025 8:31 AM CDT Coronary artery disease involving kluti kaah coronary artery of kluti ka[place] heart, unspecified whether angina present COLONOSCOPY 03/23/2016 12:00 AM CDT from Last 3 Months or Most Recently Relevant to Health Maintenance Results * ECG 12 lead (04/29/2025 8:31 AM CDT) Celia Das MD ECG ORDERABLES Final Result * COLONOSCOPY (03/23/2016 12:00 AM CDT) Anatomical Region Laterality Modality Other Narrative 03/23/2016 12:00 AM CDT Ordered by an unspecified provider. Procedure Note ProviderRoseann MD - 03/23/2016 12:00 AM CDT PROCEDURE REPORT Patient: HARSHAD LY Service Date: 03/23/2016 Account: [id number] Room No: : 1960 Patient Type: [facility] Attend.: Ade Mcclure M.D. Admit Date: 03/23/2016 Dict.: Ade Mcclure M.D. Disch. Date: 03/23/2016 SURGEON Ade Mcclure MD PROCEDURE PERFORMED Diagnostic screening colonoscopy. INDICATIONS Screening for colon cancer, iron deficiency anemia, history of polyps. PRIMARY CARE PHYSICIAN Dr. Jeremy Rios BRIEF HISTORY AND PHYSICAL The patient is a 55-year-old white male. He has history of polyps. Henoted recently he has iron deficiency anemia. EGD and colonoscopy are beingdone for evaluation. No overt bleeding. PROCEDURE Sedation was provided by anesthesia service. The procedure of EGDincluding indications and possible complications of bleeding, infection andperforation requiring surgery were discussed with the patient. Consent wasobtained. Rectal exam prior to colonoscopy was unremarkable. The scope introducedfrom the rectum down to the cecum which was identified by the ileocecal valveand appendiceal orifice. Quality of the colon preparation was excellent. The entire visualized colon was normal. No polyps and no mass lesionsnoted. No inflammatory changes noted. Retroflexion in the rectum showed small hemorrhoids. IMPRESSION 1. Small hemorrhoids. 2. Otherwise normal colonoscopy. RECOMMENDATION Repeat colonoscopy for screening in 10 years. Electronically Authenticated and Edited by: Ade Mcclure MD On 04/03/2016 12:16 PM CDT Ade Mcclure M.D. CLARKE/shaw TD: 03/24/2016 08:25 us Historical Provider ENDOSCOPY PROCEDURES Christie l Result from Last 3 Months or Most Recently Relevant to Health Maintenance Insurance [facility] MEDICARE [facility] Address: [facility] [address] [place] [address] [place] CHOICE PRF PPO [place] Care Teams Softball Player Relationship Specialty Start Date End Date Marco Gaines DO [address] [place] [address] PCP - General Internal Medicine 04/29/25
[2025-05-27 11:04] VITALS: BP 140/82; PULSE 60; RESP 18; TEMP 36.1; O2SAT 99; BMI 27.8
[2025-05-27] MEDS: LACTATED RINGERS 1,000 ML 150 ML IV CONT (11:13)
--- NOTE | 2025-05-27 12:43 | PM.HPGS ---
History of Present Illness History of Present Illness Consent: Risks, benefits, and alternatives have been discussed and questions answered. Patient agrees to proceed with procedure. Chief complaint: Screening Narrative: Harshad Ly is a 65 year old male here for screening colonoscopy, last one 10 years ago Review of Systems Review of Systems: All systems reviewed & are unremarkable except as noted in HPI and below PMFSH Past Medical History Medical History (Updated 05/27/25 @ 12:43 by Todd Joiner MD) Colon cancer screening Celiac disease Hyperlipidemia Hypertension Broken wrist Heart attack Surgical History Surgical History Stented coronary artery Family History Family History Mother Hypertension Cerebrovascular accident Father Acute leukemia Social History Social History Smoking status: Never smoker Alcohol intake: current Drinks per week: 3 Substance use type: does not use Living arrangements: with family Spiritual care concerns: No Meds Home Medications and Allergies Home Medications ?Medication ?Instructions ?Recorded ?Confirmed ?Type aspirin 81 mg tablet 81 mg PO DAILY 05/07/25 05/27/25 History atorvastatin 40 mg tablet (Lipitor) 40 mg PO DAILY 05/07/25 05/27/25 History losartan 100 mg tablet 100 mg PO DAILY 05/07/25 05/27/25 History propranolol 10 mg tablet 10 mg PO Q12H 05/07/25 05/27/25 History Allergies Allergy/AdvReac Type Severity Reaction Status Date / Time gluten AdvReac Celiac Verified 05/27/25 11:04 Disease Vital Signs Vital Signs - 24 hr 05/27/25 11:04 Temperature 97 F L Pulse Rate 60 Respiratory Rate 18 Blood Pressure 140/82 Pulse Oximetry 99 Oxygen Delivery Room Air Exam Const: General: comfortable and no acute distress HENMT: Face/Nose/Sinus: Normal nares present Eyes: General: appearance normal, both eyes and all related structures Resp: Auscultation: clear to auscultation bilaterally Cardio: Rate: regular rate Rhythm: regular rhythm GI: Inspection: non-distended GI Palp: Yes Soft to palpation Skin: General skin exam: normal color Extrem: General: normal to inspection Psych: Mental Status: mental status grossly normal Assessment and Plan Assessment and plan (1) Colon cancer screening: Code(s): Z12.11 - Encounter for screening for malignant neoplasm of colon Status: Acute Assessment and Plan: colonoscopy
--- NOTE | 2025-05-27 12:48 | WPDANESEPPF ---
Anes - Initial Pre Proc Eval Procedure: Operation Date: 05/27/25 13:00 Proposed Procedures p Screening Colonoscopy - Todd Joiner MD Date/Time: 05/27/25 12:48 Surgeon: Todd Joiner MD Pre Op Diagnosis: Screening Patient Data Age: 65 Gender: M Height: 1.8 m Weight: 90.6 kg Last Vital Signs Temp 36.1 C L 05/27/25 11:04 Pulse 60 05/27/25 11:04 Resp 18 05/27/25 11:04 BP 140/82 05/27/25 11:04 Pulse Ox 99 05/27/25 11:04 O2 Del Method Room Air 05/27/25 11:04 Allergies Allergy/AdvReac Type Severity Reaction Status Date / Time gluten AdvReac Celiac Verified 05/27/25 11:04 Disease Home Medications ?Medication ?Instructions ?Recorded ?Confirmed ?Type aspirin 81 mg tablet 81 mg PO DAILY 05/07/25 05/27/25 History atorvastatin 40 mg tablet (Lipitor) 40 mg PO DAILY 05/07/25 05/27/25 History losartan 100 mg tablet 100 mg PO DAILY 05/07/25 05/27/25 History propranolol 10 mg tablet 10 mg PO Q12H 05/07/25 05/27/25 History Patient hx anesthesia problems: none Family hx anesthesia problems: none Results Review: All pre-operative results and documents have been reviewed as part of the pre-operative evaluation. [facility] Past Medical History Medical History Colon cancer screening Celiac disease Hyperlipidemia Hypertension Broken wrist Heart attack Surgical History Surgical History Stented coronary artery Family History Family History Mother Hypertension Cerebrovascular accident Father Acute leukemia Social History Social History Smoking status: Never smoker Alcohol intake: current Drinks per week: 3 Substance use type: does not use Living arrangements: with family Spiritual care concerns: No Anes - Eval Final PreProcedure Day of Procedure 05/27/25 12:48 Patient weight: normal Heart: regular rate and rhythm Lungs: normal air movement Airway: Mallampati scale class II Neurological: alert and oriented Last oral intake: >/= 8 hours ASA classification: III Emergent: no Anesthetic plan: proceed Anesthesia type and monitoring: general GIVS and standard monitoring Results Review: All pre-operative results and documents have been reviewed as part of the pre-operative evaluation. Informed Consent: The patient's anesthetic plan and its attendant risks and benefits were discussed with the patient/family/POA. Questions were solicited and answers provided to the satisfaction of the patient/family/POA.
--- NOTE | 2025-05-27 12:59 | S_PTH ---
PATIENT: Harshad Ly LOC: [facility] Chow#:[id number] AGE/SX: 65/M ROOM: RE05/27/[address]: Todd Joiner MD : 1960 BED: DIS: 05/27/2025 SPEC #: [id number] RECD: 05/27/25 14:21 STATUS: ANTON REQ #: [id number] FAVIO: 05/27/25 12:[address]: Todd Joiner DEPT: [facility] Surgical RECD BY: Sigrid Manuel ENTERED: 05/27/25 14:21 SP TYPE: Surgical OTHR DR: Marco Gaines DO Tissues: A - Colon Polypectomy Procedures: Hematoxylin and Eosin Stain Gross and Microscopic Level 4
[2025-05-27 13:02] VITALS: BP 120/73; PULSE 73; RESP 22; O2SAT 96
[2025-05-27 13:12] VITALS: BP 123/73; PULSE 64; RESP 17; O2SAT 99
[2025-05-27 13:22] VITALS: BP 134/73; PULSE 68; RESP 21; O2SAT 100
== END 2025-05-27 13:28 | disposition home or self-care (01) ==
PROVIDERS: PCP Internal Medicine; Referring Provider Internal Medicine; Visit Provider Internal Medicine Gastroenterology
PROC: 0DJD8ZZ Inspection of Lower Intestinal Tract, Via Natural or Artificial Opening Endoscopic (ICD-10-PCS; CPT 45378; principal; 2025-05-27 13:00)
DX: Z12.11 Encounter for screening for malignant neoplasm of colon (principal); K63.5 Polyp of colon; K57.30 Diverticulosis of large intestine without perforation or abscess without bleeding; E78.5 Hyperlipidemia, unspecified; I10 Essential (primary) hypertension; K90.0 Celiac disease; K86.81 Exocrine pancreatic insufficiency; I25.2 Old myocardial infarction; Z79.82 Long term (current) use of aspirin; Z95.5 Presence of coronary angioplasty implant and graft; Z80.6 Family history of leukemia
CPT/HCPCS: 45385; 88305; J2003; J2704; J7120